=== PATIENT | male | born 1990 | race Asian ===

== ENCOUNTER 2017-02-21 01:59 | Emergency (ER) | payer OTHER ==
[~2017-02-21] VITALS: Ht 170.2 cm; Wt 64.4 kg
[~2017-02-21 01:59] MED LIST: ALPR0.5T PO; CYCL10TA9 PO; FAMO20TA5 PO; HYDR-3816 PO; NAPR500T PO; ONDA-42 SL
[2017-02-21] MEDS ORDERED: ACETAMINOPHEN 500 MG TAB (TYLENOL) PO STA (02:12)
[2017-02-21] MEDS ORDERED: AMOXICILLIN 500 MG (POLYMOX) CAP PO STA (02:12)
--- NOTE | 2017-02-21 02:12 | ED EENT ---
History of Present Illness General Chief Complaint: Dental Problems/Pain Stated Complaint: TOOTH PAIN Source: patient Exam Limitations: language barrier (ESL) History of Present Illness Time seen by provider: 02:08 Initial Comments Patient presents with 24 hours progressively worsening right upper tooth pain. He has an appointment with his dentist in a few weeks. He has been using some sort of oral numbing medicine and no Tylenol or Motrin. The numbing medicine is no longer helping. He is denies fevers, chills, malaise, nausea, vomiting, rash , headache. His pain in his right maxilla radiates up to the side of his face. No difficulty hearing or falls of the ears. Allergies and Home Medications Allergies Coded Allergies: No Known Drug Allergies (Unverified , 12/15/14) Home Medications Amoxicillin 500 Mg Capsule, 500 MG PO TID for 10 Days, #30 Ref 0 Prescribed by: JEFF SLATER on 02/21/17 0253 Hydrocodone/Acetaminophen 1 Each Tablet, 1 EACH PO Q6H PRN for PAIN, #14 Ref 0 Prescribed by: JEFF SLATER on 02/21/17 0253 Review of Systems Constitutional: No chills, No fever, No malaise Eyes: Denies Blurred Vision, Denies Pain Ears: Denies Pain, Denies Tinnitus Nose: denies congestion, denies pain Mouth: denies loose teeth, pain (right upper molars), denies purulent discharge Throat: denies pain, denies swelling Respiratory: No cough, No wheezing Past Djcbjry-Vslzgb-Elfuwv Hx Patient Social History Alcohol Use: Denies Use Recreational Drug Use: No Smoking Status: Current Everyday Smoker Type Used: Cigarettes Recent Foreign Travel: No Contact w/Someone Who Travel: No Recent Hopitalizations: No Immunizations Up To Date Tetanus Booster (TDap): Less than 5yrs Seasonal Allergies Seasonal Allergies: No Surgeries HX Surgeries: No Respiratory Hx Respiratory Disorders: No Cardiovascular Hx Cardiac Disorders: No Neurological Hx Neurological Disorders: No Reproductive System Hx Reproductive Disorders: No Genitourinary Hx Genitourinary Disorders: No Gastrointestinal Hx Gastrointestinal Disorders: No Musculoskeletal Hx Musculoskeletal Disorders: No Endocrine Hx Endocrine Disorders: No HEENT HX ENT Disorders: No Cancer Hx Cancer: No Psychosocial Hx Psychiatric Problems: No Integumentary HX Skin/Integumentary Disorder: No Blood Transfusions Hx Blood Disorders: No Family Medical History Significant Family History: No Pertinent Family Hx Physical Exam Vital Signs Vital Sign - Last 12Hours 02/21/17 02:03 Temp 95.6 Pulse 64 Resp 20 B/P (MAP) 123/88 Pulse Ox 98 O2 Delivery Room Air General Appearance: WD/WN, no apparent distress Eyes: bilateral eye EOMI, bilateral eye normal inspection Ears: bilateral ear TM normal, bilateral ear auricle normal, bilateral ear canal normal Nose: normal inspection, No discharge Mouth/Throat: dental tenderness (Right upper maxilla), No excessive drooling, No foreign body, No mandibular swelling, No maxillary swelling, pharynx tenderness, No tongue swollen Neck: non-tender, supple, normal inspection Cardiovascular: normal peripheral pulses, regular rate, rhythm, no edema, no murmur Respiratory: chest non-tender, lungs clear, normal breath sounds Progress/Results/Core Measures Results/Orders My Orders Orders - JEFF SLATER Acetaminophen Tablet (Tylenol Tablet) (02/21/17 02:12) Lidocaine/Epi 1% 1:100,000 (Xylocaine /E (02/21/17 02:15) Lidocaine 2% Viscous 15 Ml (Xylocaine Vi (02/21/17 02:15) Amoxicillin Capsule (Polymox Capsule) (02/21/17 02:12) Medications Given in ED Current Medications Medications Dose Ordered Sig/Tresa Route Start Time Stop Time Status Last Admin Dose Admin Lidocaine HCl 15 ml ONCE ONCE PO 02/21/17 02:15 02/21/17 02:17 DC 02/21/17 02:26 15 ML Lidocaine/ Epinephrine 20 ml ONCE ONCE INJ 02/21/17 02:15 02/21/17 02:17 DC 02/21/17 02:50 20 ML Vital Signs/I&O Vital Sign - Last 12Hours 02/21/17 02:03 Temp 95.6 Pulse 64 Resp 20 B/P (MAP) 123/88 Pulse Ox 98 O2 Delivery Room Air Progress Note : Time: 02:47 Progress Note 4 cc of 1% with epi lidocaine applied to the right alveolar nerve. Numbness is achieved. Amoxicillin was initiated and the patient was given instructions for pain control as well as viscous lidocaine impregnated gauze and allowed to go home. Departure Impression Impression: Primary Impression: Dental caries Disposition: 01 HOME, SELF-CARE Condition: Improved Departure-Patient Inst. Decision time for Depature: 02:48 Referrals: NO,LOCAL PHYSICIAN (PCP) Primary Care Physician Patient Instructions: Dental Pain (DC) Add. Discharge Instructions: You have pain in her mouth due to dental caries which is a infection of the tooth. You will be placed on antibiotics to be taken one capsule twice a day. Take this with food. For your pain you can use the Orajel or viscous lidocaine gauze for that you been provided with. Do not eat, drink, or fall asleep with the gauze in your mouth. You may also use Tylenol 650 mg every 6 hours or Motrin 800 mg every 8 hours as needed. If all of this is insufficient you may also place an ice pack over your face. If this does not help your pain then you may use the hydrocodone. If you use the hydrocodone you should also use something like MiraLAX to keep your bowels moving as constipation is a common side effect of using opiates. You may also experienced drowsiness and should not mix hydrocodone with alcohol. You should not drive or make important decisions while under the influence of opiates. If you're having new symptoms such as fever or nausea and vomiting then you should return to your primary care physician, dentist or ER provider as appropriate. You should make an appointment with a dentist as this will require dental resection. All discharge instructions reviewed with patient and/or family. Voiced understanding. Scripts Hydrocodone/Acetaminophen (Hydrocodon -Acetaminophen 5-325) 1 Each Tablet 1 EACH PO Q6H Y for PAIN, #14 TAB 0 Refills Prov: JEFF SLATER 02/21/17 Amoxicillin (Amoxicillin) 500 Mg Capsule 500 MG PO TID for 10 Days, #30 CAP 0 Refills Prov: JEFF SLATER 02/21/17 Work/School Note: Family Work Note, Patient Received Medical Care In the Emergency Department On: Feb 21, 2017 Patient Will Be Able to Return to Work/School On: Feb 21, 2017 Patient Restrictions: May return to school by afternoon if feeling better. No restrictions School/Childcare Release Date Seen in the Emergency Department: Feb 21, 2017 Time Dismissed from Emergency Department: 02:57 Return to School: Feb 21, 2017 Restrictions: No Restrictions Other Restrictions Listed Below: Anticipate he may return to school by the afternoon if he is feeling better JEFF SLATER Feb 21, 2017 02:12
[2017-02-21] MEDS ORDERED: LIDOCAINE/EPI 1%-1:100,000 (XYLOCAINE) 20ML INJ ONE (02:15)
[2017-02-21] MEDS ORDERED: LIDOCAINE 2% VISCOUS 15 ML UDC PO ONE (02:15)
[2017-02-21] MEDS ORDERED: HYDR-3812 PO (02:53)
[2017-02-21] MEDS ORDERED: AMOX500C2 PO (02:53)
[2017-02-21 03:02] VITALS: BP 0/0
== END 2017-02-21 03:02 | disposition home or self-care (01) ==
LOC: EDUNIT# 01:59 → ER 02:02
DX: K02.9 Dental caries, unspecified (principal); F17.210 Nicotine dependence, cigarettes, uncomplicated
CPT/HCPCS: 99282